=== PATIENT | male | born 1965 | race Two or more races ===

== ENCOUNTER 2017-08-27 10:42 | Outpatient (RCR) | payer BC ==
[~2017-08-27 10:42] MED LIST: ADDERALL 30 MG30 MG ORAL; OXYCODONE HCL10 MG ORAL; OXYCONTIN20 MG ORAL; PROPECIA1 MG PO
== END 2017-09-11 | disposition home or self-care (01) ==
LOC: WCC 10:42
DX: L97.822 Non-pressure chronic ulcer of other part of left lower leg with fat layer exposed (principal); I87.2 Venous insufficiency (chronic) (peripheral); Z86.14 Personal history of Methicillin resistant Staphylococcus aureus infection
CPT/HCPCS: 11042; 29580; G0463

== ENCOUNTER 2020-08-04 10:35 | Outpatient (RCR) | payer BC | END 2020-08-11 | disposition home or self-care (01) | LOC: WCC 10:35 | DX: L98.491 Non-pressure chronic ulcer of skin of other sites limited to breakdown of skin (principal); L03.114 Cellulitis of left upper limb; Z86.14 Personal history of Methicillin resistant Staphylococcus aureus infection; Z85.9 Personal history of malignant neoplasm, unspecified | CPT/HCPCS: 11043; 11104; 87070; 87205 ==

== ENCOUNTER → 2020-08-04 | Outpatient (CLI) | payer BC ==
--- NOTE | 2020-08-04 13:20 | Diagnostic Imaging Report ---
Indications:Left elbow pain/infection Technique: Three or 4 views of the left elbow Comparison: None Findings: No acute fractures. No dislocations. No definite effusion. The joint spaces are preserved. No radiopaque foreign body Impression: No acute bony trauma No plain radiographic findings to suggest acute osteomyelitis. Note, however, limited sensitivity of plain radiographs for such. Consider MRI or nuclear medicine three-phase bone scan 4 more sensitive characterization if there is high clinical suspicion
== END | disposition home or self-care (01) ==
LOC: RAD 11:38
DX: M25.522 Pain in left elbow (principal)